=== PATIENT | male | born 1990 | race African-American/Black ===

== ENCOUNTER 2020-02-14 03:52 | Emergency (ER) | payer SELFPAY ==
[2020-02-14 03:57] VITALS: BP 100/55; PULSE 100; RESP 18; TEMP 36.7; O2SAT 100
--- NOTE | 2020-02-14 04:11 | ED_ITS ---
HPI - Dental/Oral General Chief complaint: Dental/Oral Stated complaint: toothache Time Seen by Provider: 02/14/20 03:54 History of Present Illness HPI Narrative: Severe pain in the left lower jaw. This has been present for a long time. Worse today than usual. Saw dentist today and told that he needs a root canal. He does not feel that he can afford this. No fever, swelling, Related Data Allergies Allergy/AdvReac Type Severity Reaction Status Date / Time No Known Allergies Allergy Verified 02/14/20 04:20 Review of Systems Review of Systems: All systems reviewed & are unremarkable except as noted in HPI and below Constitutional: Constitutional: Denies fever(s) ENT: Denies dizziness and Denies sore throat Cardiovascular: Cardiovascular: Denies chest pain Respiratory: Respiratory: Denies dyspnea Neurologic: Denies vertigo and Reports headache(s) [facility] Social History Social History (Updated 02/23/20 @ 18:47 by Jim Hernandez MD) Gender identity (if verbalized by the patient): Male Exam Const: General: no acute distress and alert Orientation/consciousness: patient oriented x3 HENMT: Teeth and gingiva: abnormal tooth and associated gingiva (tooth #18 broken with mild surrounding erythema) Eyes: Pupils: Equal, round and reactive pupils present EOM: EOMs intact bilaterally Neck: Neck: normal visual inspection and no lymphadenopathy Resp: Effort & Inspection: normal respiratory effort Auscultation: clear to auscultation bilaterally Cardio: Rate: regular rate Rhythm: regular rhythm Neuro: General: patient oriented x3 and CN's II-XI intact bilaterally Speech: normal speech Course Vital Signs Vital signs: Vital Signs Temperature 36.7 C 02/14/20 03:57 Pulse Rate 100 02/14/20 03:57 Respiratory Rate 18 02/14/20 03:57 Blood Pressure 100/55 L 02/14/20 03:57 Pulse Oximetry 100 02/14/20 03:57 Temperature 36.7 C 02/14/20 03:57 Pulse Rate 97 02/14/20 06:00 Respiratory Rate 16 02/14/20 06:00 Blood Pressure 110/83 02/14/20 06:00 Pulse Oximetry 100 02/14/20 06:00 Procedures Nerve Block Nerve Block 1: Local Anesthetic: lidocaine 1% and with epi Amount of anesthesia used (mL): 3 Side: left Intraoral Nerve Block: infraorbital Procedure Successful: Yes Patient Tolerated Procedure: well Complications: none MDM - Dental/Oral Differential Diagnosis Differential diagnosis: Likely dental caries and toothache Discharge Plan Discharge Clinical Impression: Pulpitis Patient Disposition: Home, Self-Care Condition: Stable Instructions: Antibiotic Form, Toothache (ED) Prescriptions: New ibuprofen 600 mg tablet 600 mg PO QID Qty: 30 RF: 0 hydrocodone-acetaminophen [Rodney] 5-325 mg tablet 1 tablet PO Q6H PRN (Reason: pain) Qty: 5 RF: 0 penicillin V potassium 500 mg tablet 500 mg PO Q8H Qty: 30 RF: 0 Follow-up/Referrals: PHYSICIAN,[facility] ATTENDANT [Primary Care Provider] - Discharge Date/Time: 02/14/20 06:01
[2020-02-14] MEDS: KETOROLAC (*BKC) 60 MG/2 ML VIAL IM (04:21)
[2020-02-14] MEDS: PENICILLIN V POTASSIUM 250 MG TABLET 500 MG PO (05:53)
[2020-02-14 06:00] VITALS: BP 110/83; PULSE 97; RESP 16; O2SAT 100
== END 2020-02-14 06:01 | disposition home or self-care (01) ==
PROVIDERS: Emergency Provider Emergency Medicine
DX: K04.01 Reversible pulpitis (principal)
CPT/HCPCS: 64999; 96372; 99283; A9270; J1885